=== PATIENT | female | born 1990 | race Caucasian/White ===

== ENCOUNTER 2023-03-13 12:48 | Emergency (ER) | payer MEDICAID, OTHER ==
[~2023-03-13 12:48] MED LIST: ACET1TAB43 PO; CIPR500T78 PO; CLIN-62 PO; FRS325T PO; IBP600T1 PO; NITR100C3 PO; PRM25T PO; TRAM-21 PO; [UNRECOGNIZED DRUG - CODE] PO
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
[2023-03-13 15:34] VITALS: BP 117/76
== END 2023-03-13 15:35 | disposition home or self-care (01) ==
LOC: EDUNIT# 12:48 → ER 12:54
DX: S06.0XAA Concussion with loss of consciousness status unknown, initial encounter (principal); S01.511A Laceration without foreign body of lip, initial encounter; V89.2XXA Person injured in unspecified motor-vehicle accident, traffic, initial encounter; Y92.410 Unspecified street and highway as the place of occurrence of the external cause
CPT/HCPCS: 12011; 70450